=== PATIENT | male | born 1950 | race Caucasian/White ===

== ENCOUNTER → 2016-08-16 | Outpatient (CLI) | payer BC ==
[~2016-08-16] MED LIST: LOSA100T6 PO; MELO15TA23 PO; TRAM50TA PO
--- NOTE | 2016-08-16 12:36 | RAD ---
EXAM: Chest 2 views. HISTORY: Chronic smoker. COMPARISON: None. FINDINGS: Frontal and lateral views of the chest are obtained. Hyperinflation is consistent with chronic obstructive pulmonary disease. There are no confluent infiltrates. There is no pneumothorax or pleural effusion. The heart is not enlarged. Changes of lumbar instrumented posterior fusion are partially visualized. IMPRESSION: 1. Chronic obstructive pulmonary disease. No confluent infiltrates.
== END | disposition home or self-care (01) ==
LOC: DXRADRC 11:13
PROVIDERS: ATTEND Nurse Practitioner Family
DX: J44.9 Chronic obstructive pulmonary disease, unspecified (principal); Z72.0 Tobacco use
CPT/HCPCS: 71020

== ENCOUNTER → 2020-02-07 | Outpatient (CLI) | payer MEDICARE, BC ==
[~2020-02-07] MED LIST changes: +IOHEXOL 240 MG/ML 50ML VIAL. ONE; +IOHEXOL 300 MG/ML 75 ML VIAL. IV ONE; +LOSA100T14 PO; -LOSA100T6 PO
[2020-02-07 10:30] LABS: CREATININE 1.2 mg/dL (0.7-1.3); GFR 60.4
--- NOTE | 2020-02-07 17:26 | RAD ---
PQRS Compliance Statement: One or more of the following individualized dose reduction techniques were utilized for this examination: 1. Automated exposure control 2. Adjustment of the mA and/or kV according to patient size 3. Use of iterative reconstruction technique CT CHEST ABD PELVIS W/CONTRAST Clinical Indication: Reason: LYTIC BONE LESION OF. Bone metastasis. Comparison: MR pelvis with and without contrast January 25, 2020. CT abdomen and pelvis without contrast October 16, 2013. Technique: Helical CT imaging of the abdomen and pelvis is performed after 75 cc of Omnipaque 300 IV contrast. Oral contrast also administered. Findings: There is a 1.4 cm right thyroid nodule. Tiny sebaceous cyst right anterior chest wall. There is a 1 cm right paratracheal lymph node. There is right hilar adenopathy in conglomerate measuring up to 3.1 cm. There are additional 1.4 and 1.1 cm right hilar nodes more inferiorly. There is a right upper lobe hilar/perihilar mass measuring 2.7 cm AP by 3 cm transverse by 3 cm craniocaudal. No central pulmonary embolus is identified. There is coronary artery disease. The cardiac size is normal, no pericardial effusion. There is trace left pleural effusion. The right upper lobe central bronchi are narrowed. There are spiculated nodules in the right lung apex. One measures 1.5 cm as seen on image 22. One measures 1.3 cm as seen on image 28. 2 additional nodules are seen on image 41 in the right upper lobe. There is mild centrilobular emphysema. There is a 6 mm nodule the right middle lobe, image 83. There is discoid atelectasis in the left lower lobe. There is also an irregular nodule measuring 1 cm, image 81. There is mixed attenuation consolidation in the anterior left lung base measuring 3.5 cm AP by 1.2 cm transverse. There is small focus of hyperenhancement in the posterior right hepatic lobe, image 98. This is not seen on the abdomen images. There is a peripheral nodular enhancing mass in segment 7 which has filled in on the abdomen images most compatible with a hemangioma. This measures up to 4.4 cm. Small hypodensities in the liver are too small to further characterize. Calcified granulomas in the spleen. The gallbladder, pancreas, and adrenal glands are normal. Severe atherosclerotic calcification of the distal abdominal aorta, no aneurysm. No hydronephrosis. Nonobstructing right renal calculi. Right lower pole prominent calyx. Stomach unremarkable. There is no dilated small bowel. The appendix is normal. There is no colon wall thickening. There is a 1.1 cm gastrohepatic lymph node. There is a 1.1 cm aortocaval lymph node. There is a 1.3 cm left common iliac lymph node. There is an irregular 1.7 cm a left external iliac nodule that may be an abnormal lymph node. Urinary bladder is without wall thickening. There are dependent bilateral bladder calculi versus layering tiny calculi. Largest measures up to 8 mm. Prostate size normal. There are destructive soft tissue masses of the bilateral iliac bones with involvement of the right sacroiliac joint. The left mass has a cystic component measuring up to 3.3 cm. There is posterior fusion and posterior decompression and interbody spacers of L3-S1. IMPRESSION: 1. There is a right perihilar mass and hilar adenopathy highly suspicious for lung malignancy. 2. There are bilateral lung nodules mainly on the right that may be pulmonary metastases. 3. 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 4. There are suspected margie metastases gastrohepatic, aortocaval, left common iliac, and left external iliac. 5. Small focus of hyperenhancement in the right hepatic lobe near the dome is indeterminant. Metastasis or flash filling hemangioma are considerations. 6. Trace left pleural effusion. 7. Other incidental findings as above. Electronically signed by: Bear Damian MD (02/07/2020 5:19 PM) [id number]
== END ==
LOC: CT 08:43
PROVIDERS: ATTEND Internal Medicine Hematology & Oncology
DX: C79.51 Secondary malignant neoplasm of bone (principal); M89.8X5 Other specified disorders of bone, thigh; E04.1 Nontoxic single thyroid nodule; J90 Pleural effusion, not elsewhere classified; R91.1 Solitary pulmonary nodule; J98.11 Atelectasis; I70.0 Atherosclerosis of aorta; N21.0 Calculus in bladder; M43.27 Fusion of spine, lumbosacral region
CPT/HCPCS: 36415; 71260; 74177; 82565; 84520; Q9967